=== PATIENT | male | born 1930 | race Caucasian/White ===

== ENCOUNTER 2018-05-30 10:20 | Emergency (ER) | payer MEDICARE ==
[~2018-05-30] VITALS: Ht 172.7 cm; Wt 74.9 kg
[~2018-05-30 10:20] MED LIST: AMIODARONE HCL200 MG PO; AMLODIPINE BESY10 MG PO; CALCIUM600 MG PO; HYDROCHLOROTHIA25 MG PO; KLOR-CON M2020 MEQ PO; LANSOPRAZOLE30 MG PO; MEN'S MULTI-VI1 EACH PO; SIMVASTATIN40 MG PO; SYNTHROID100 MCG PO; WARFARIN SODIUM2 MG PO; XTANDI40 MG PO
[2018-05-30] MEDS ORDERED: ELIQUIS5 MG PO (10:34)
== END 2018-05-30 12:50 | disposition home or self-care (01) ==
LOC: ED 10:20
PROC: 0HQ1XZZ Repair Face Skin, External Approach (ICD-10-PCS; principal; 2018-05-30)
DX: S01.81XA Laceration without foreign body of other part of head, initial encounter (principal); Z23 Encounter for immunization; I48.91 Unspecified atrial fibrillation; I10 Essential (primary) hypertension; E78.00 Pure hypercholesterolemia, unspecified; Z88.2 Allergy status to sulfonamides; Z79.899 Other long term (current) drug therapy; W01.0XXA Fall on same level from slipping, tripping and stumbling without subsequent striking against object, initial encounter; W25.XXXA Contact with sharp glass, initial encounter
CPT/HCPCS: 12013; 70150; 73130; 90471; 90715; 99283